=== PATIENT | male | born 2000 | race Caucasian/White ===

== ENCOUNTER 2021-11-29 22:32 | Emergency (ER) | payer OTHER ==
[2021-11-30 02:05] LABS: HEMOGLOBIN 11.7 gm/dl (14.0-17.5); RED BLOOD COUNT 3.69 M/UL (4.20-5.50); WHITE BLOOD COUNT 7.9 K/UL (4.5-11.0)
[2021-11-30 02:29] LABS: BUN/CREATININE RATIO 16 (0-10)
[2021-11-30] MEDS ORDERED: ZITHROMAX250 MG PO (05:13)
== END 2021-11-30 05:55 | disposition home or self-care (01) ==
LOC: ER1 22:32
PROVIDERS: Physician Assistant
DX: R04.2 Hemoptysis (principal); R06.02 Shortness of breath; R07.9 Chest pain, unspecified; R40.2410 Glasgow coma scale score 13-15, unspecified time; F17.210 Nicotine dependence, cigarettes, uncomplicated; Z88.0 Allergy status to penicillin; Z20.822 Contact with and (suspected) exposure to COVID-19; Z90.89 Acquired absence of other organs; Z88.8 Allergy status to other drugs, medicaments and biological substances
CPT/HCPCS: 0240U; 71045; 80053; 85025; 99285; Q9967